=== PATIENT | female | born 1980 | race Asian ===

== ENCOUNTER 2017-11-12 03:49 | Inpatient (IN) | payer BC, OTHER ==
[~2017-11-12] VITALS: Ht 157.5 cm; Wt 56.2 kg
[~2017-11-12 03:49] MED LIST: FERR-43 PO
[2017-11-12] MEDS ORDERED: FOLI-43 PO (04:50)
[2017-11-12] MEDS ORDERED: PNV1TABL76 MT (04:50)
[2017-11-12] MEDS ORDERED: LACTATED RINGERS 1,000 ML IV SCH (04:54)
[2017-11-12] MEDS ORDERED: TERBUTALINE SULFATE 1MG/ML VIAL SUBCUT NR (05:00)
[2017-11-12] MEDS ORDERED: BETAMETHASONE ACET/BETAMET 30 MG/5 ML VIAL IM SCH (05:00)
[2017-11-12] MEDS ORDERED: AMPICILLIN 2,000 MG in SODIUM CHLORIDE 0.9% 100 ML IV SCH (05:15)
[2017-11-12] MEDS ORDERED: AZITHROMYCIN 500 MG in DEXT 5% WATER 250 ML IV SCH (06:00)
[2017-11-12 06:28] LABS: BASOPHILS % 0.2 % (0.0-2.0); EOSINOPHILS % 0.8 % (0.0-5.0); HEMATOCRIT. 36.3 % (36.0-48.0); MEAN CORPUSCULAR HEMOGLOBIN 30.2 pg (28.0-32.0); MEAN CORPUSCULAR VOLUME 91.7 fL (81.0-99.0); MEAN PLATELET VOLUME 8.8 fl (7.4-10.4); MONOCYTES % 6.7 % (2.0-8.0); NEUTROPHILS % 84.3 % (40.0-76.0); PLATELET 189 x1000/uL (130-400); RED BLOOD CELL COUNT 3.96 mill/uL (4.2-5.4); RED CELL DISTRIBUTION WIDTH 14.1 % (11.6-14.6)
[2017-11-12 06:31] LABS: CLARITY URINE CLEAR (CLEAR); COLOR URINE YELLOW (YELLOW); KETONES URINE NEGATIVE (NEGATIVE); LEUKOCYTE ESTERASE URINE 2+ (NEGATIVE); NITRITE URINE NEGATIVE (NEGATIVE); OCCULT BLOOD URINE NEGATIVE (NEGATIVE); PH URINE 6.5 (4.5-8.0); PROTEIN URINE NEGATIVE (NEGATIVE); SPECIFIC GRAVITY URINE 1.008 (1.005-1.030); UROBILINOGEN URINE 0.2 E.U./dL (0.2-1.0)
[2017-11-12 06:33] LABS: INR 0.9; PARTIAL THROMBOPLASTIN TIME 25.5 sec (23.4-31.0); PROTHROMBIN TIME 9.8 sec (9.4-11.6)
[2017-11-12 07:01] LABS: *AMPHETAMINES SCREEN URINE NEGATIVE (NEGATIVE); *BARBITURATES SCREEN URINE NEGATIVE (NEGATIVE); *BENZODIAZEPINES SCREEN URINE NEGATIVE (NEGATIVE); *COCAINE SCREEN URINE NEGATIVE (NEGATIVE); CANNABINOID URINE SCREEN NEGATIVE (NEGATIVE); METHADONE URINE SCREEN NEGATIVE (NEGATIVE); OPIATES URINE SCREEN NEGATIVE (NEGATIVE); PHENCYCLIDINE URINE SCREEN NEGATIVE (NEGATIVE)
[2017-11-12] MEDS ORDERED: DEXT 5%/LR + PITOCIN 20UNITS/L 1,000 ML IV SCH (07:16)
[2017-11-12] MEDS ORDERED: MAGNESIUM 20 G PREMIX (L & D) 500 ML IV SCH (07:20)
[2017-11-12] MEDS ORDERED: METHYLERGONOVINE MALEATE 0.2 MG/ML IM PRN (07:30)
[2017-11-12] MEDS ORDERED: CARBOPROST TROMETHAMINE 250 MCG/ML AMPUL IM PRN (07:30)
[2017-11-12 10:54] LABS: HEPATITIS B SURFACE ANTIGEN NEGATIVE; RUBELLA IGG 59.2 IU/mL (4.99-10)
[2017-11-12] MEDS ORDERED: AMPICILLIN 1,000 MG in SODIUM CHLORIDE 0.9% 50 ML IV SCH (12:00)
[2017-11-12] MEDS ORDERED: MORPHINE SULFATE/PF 1MG/ML 10ML AMP ONE (12:39)
[2017-11-12] MEDS ORDERED: FENTANYL CITRATE/PF 50MCG/ML 2ML VIAL ONE (12:39)
[2017-11-12] MEDS ORDERED: GLYCOPYRROLATE 0.2 MG/ML 2ML VIAL ONE (13:11)
[2017-11-12] MEDS ORDERED: CEFAZOLIN SODIUM 1000MG/VIAL ONE (13:12)
[2017-11-12] MEDS ORDERED: OXYTOCIN 10 UNITS/ML 1ML ONE (13:22)
[2017-11-12] MEDS ORDERED: NALOXONE HCL 0.4 MG/ML 1ML VIAL IV PRN (14:15)
[2017-11-12] MEDS ORDERED: HYDROCODONE/ACETAMINOPHEN 5/325MG TABLET PO PRN (14:15)
[2017-11-12] MEDS ORDERED: RHO(D) IMMUNE GLOBULIN 300 MCG/SYR IM PRN (14:15)
[2017-11-12] MEDS ORDERED: DIPHENHYDRAMINE 50MG/ML VIAL IV PRN (14:15)
[2017-11-12] MEDS ORDERED: ONDANSETRON HCL 4MG/2ML VIAL IV PRN (14:15)
[2017-11-12] MEDS ORDERED: LANOLIN OINT 0.25 GM TUBE TOP PRN (14:15)
[2017-11-12] MEDS: KETOROLAC 30MG/ML VIAL IV SCH ×2 (16:23→22:30)
[2017-11-12 17:00] VITALS: BP 98/49
[2017-11-12 17:30] VITALS: BP 109/65
[2017-11-12] MEDS: DEXT 5%/LR + PITOCIN 20UNITS/L 1,000 ML IV SCH (20:55)
[2017-11-12 22:00] VITALS: BP 98/49
[2017-11-13 00:30] VITALS: BP 95/49
[2017-11-13] MEDS: KETOROLAC 30MG/ML VIAL IV SCH ×2 (04:38→08:30)
[2017-11-13] MEDS: DEXT 5%/LR + PITOCIN 20UNITS/L 1,000 ML IV SCH (05:54)
[2017-11-13 06:00] VITALS: BP 97/55
[2017-11-13 07:54] LABS: HEMATOCRIT. 26.6 % (36.0-48.0); MEAN CORPUSCULAR HEMOGLOBIN 30.1 pg (28.0-32.0); MEAN CORPUSCULAR VOLUME 89.4 fL (81.0-99.0); MEAN PLATELET VOLUME 8.8 fl (7.4-10.4); PLATELET 193 x1000/uL (130-400); RED BLOOD CELL COUNT 2.97 mill/uL (4.2-5.4)
[2017-11-13 08:00] VITALS: BP 113/59
[2017-11-13] MEDS ORDERED: TETANUS, DIPHTHERIA, PERTUSSIS VAC/PF 0.5ML (>7YR OLD) IM ONE (08:00)
[2017-11-13 10:20] LABS: PLATELET ESTIMATE NORMAL
[2017-11-13] MEDS: HYDROCODONE/ACETAMINOPHEN 5/325MG TABLET PO PRN ×2 (11:59→18:25)
[2017-11-13 12:00] VITALS: BP 116/64
[2017-11-13] MEDS: IBUPROFEN 400MG TABLET PO PRN ×2 (12:00→18:26)
[2017-11-13] MEDS: PRENATAL VIT/FE FUMARATE/FA TABLET PO SCH (13:55)
[2017-11-13 16:45] VITALS: BP 115/65
[2017-11-13 22:00] VITALS: BP 107/58
[2017-11-14 04:00] VITALS: BP 99/54
[2017-11-14] MEDS: PRENATAL VIT/FE FUMARATE/FA TABLET PO SCH (07:29)
[2017-11-14 07:42] VITALS: BP 105/54
[2017-11-14] MEDS: HYDROCODONE/ACETAMINOPHEN 5/325MG TABLET PO PRN (14:26)
[2017-11-14 16:00] VITALS: BP 100/60
[2017-11-14 20:00] VITALS: BP 117/62
[2017-11-14] MEDS ORDERED: DOCUSATE SODIUM 100MG CAPSULE PO SCH (21:00)
[2017-11-14] MEDS: IBUPROFEN 400MG TABLET PO PRN (21:26)
[2017-11-15 00:24] VITALS: BP 118/76
[2017-11-15] MEDS: HYDROCODONE/ACETAMINOPHEN 5/325MG TABLET PO PRN (04:17)
[2017-11-15] MEDS: PRENATAL VIT/FE FUMARATE/FA TABLET PO SCH (07:56)
[2017-11-15 08:00] VITALS: BP 129/75
[2017-11-15] MEDS ORDERED: TETANUS, DIPHTHERIA, PERTUSSIS VAC/PF 0.5ML (>7YR OLD) IM ONE (08:00)
[2017-11-15] MEDS ORDERED: INFLUENZA VIRUS VACCINE 0.5ML SYR IM ONE (10:00)
== END 2017-11-15 12:20 | disposition home or self-care (01) | DRG 765 ==
LOC: L&D 03:49 → OBSVTOIN 03:49 → L&D 12:04 → 7EST PP/OB 16:47
PROVIDERS: ADMIT Specialist; ATTEND Specialist
PROC: 10D00Z1 Extraction of Products of Conception, Low, Open Approach (ICD-10-PCS; principal; 2017-11-13)
DX: O30.003 Twin pregnancy, unspecified number of placenta and unspecified number of amniotic sacs, third trimester (principal); O60.14X1 Preterm labor third trimester with preterm delivery third trimester, fetus 1; O60.14X2 Preterm labor third trimester with preterm delivery third trimester, fetus 2; D62 Acute posthemorrhagic anemia; Z37.2 Twins, both liveborn; O32.1XX2 Maternal care for breech presentation, fetus 2; O90.81 Anemia of the puerperium; Z3A.32 32 weeks gestation of pregnancy; Z79.899 Other long term (current) drug therapy; O09.523 Supervision of elderly multigravida, third trimester
CPT/HCPCS: 36415; 76810; 80305; 81003; 85025; 85610; 85730; 86592; 86703; 86762; 86850; 86900; 87340; 88307; 90686; 90715; G0378; J0290; J0456; J0690; J0702; J1200; J1885; J2274; J2405; J2590; J3010; J3105; J3475; J3490; J7050; J7060; J7120; A4315

== ENCOUNTER 2018-07-30 09:38 | Observation (INO) | payer BC, OTHER ==
[~2018-07-30] VITALS: Ht 157.5 cm; Wt 52.6 kg
[~2018-07-30 09:38] MED LIST changes: +FOLI-43 PO; +PNV1TABL76 MT
[2018-07-30] MEDS ORDERED: MVI, ADULT NO.1 10 ML in DEXT 5%/LACTATED RINGERS 1,000 ML IV SCH ×2 (12:00)
== END 2018-07-30 13:40 | disposition home or self-care (01) ==
LOC: ER 09:38 → L&D 10:00
PROVIDERS: ADMIT Specialist; ATTEND Specialist
DX: O26.892 Other specified pregnancy related conditions, second trimester (principal); R10.30 Lower abdominal pain, unspecified; M79.604 Pain in right leg; M79.605 Pain in left leg; Z3A.27 27 weeks gestation of pregnancy; O09.522 Supervision of elderly multigravida, second trimester
CPT/HCPCS: 96365; 99281; G0378; J3490; J7121

== ENCOUNTER 2018-10-26 17:46 | Inpatient (IN) | payer OTHER ==
[~2018-10-26] VITALS: Ht 157.5 cm; Wt 59.0 kg
[2018-10-26] MEDS ORDERED: DEXT 5%/LR + PITOCIN 20UNITS/L 1,000 ML IV SCH (18:21)
[2018-10-26] MEDS ORDERED: METHYLERGONOVINE MALEATE 0.2 MG/ML IM PRN (18:30)
[2018-10-26] MEDS ORDERED: CARBOPROST TROMETHAMINE 250 MCG/ML AMPUL IM PRN (18:30)
[2018-10-26] MEDS ORDERED: MISOPROSTOL 100MCG TABLET VG SCH (18:30)
[2018-10-26] MEDS ORDERED: NALOXONE HCL 0.4 MG/ML 1ML VIAL IM PRN (18:30)
[2018-10-26] MEDS: LACTATED RINGERS 1,000 ML IV SCH ×2 (18:35→18:58)
[2018-10-26 19:14] LABS: BASOPHILS % 0.2 % (0.0-2.0); EOSINOPHILS % 1.2 % (0.0-5.0); HEMATOCRIT. 35.6 % (36.0-48.0); LYMPHOCYTES % 12.1 % (20.0-50.0); MEAN CORPUSCULAR HEMOGLOBIN 29.4 pg (28.0-32.0); MEAN CORPUSCULAR VOLUME 87.2 fL (81.0-99.0); MEAN PLATELET VOLUME 9.4 fl (7.4-10.4); NEUTROPHILS % 79.5 % (40.0-76.0); PLATELET 198 x1000/uL (130-400); RED BLOOD CELL COUNT 4.08 mill/uL (4.2-5.4)
[2018-10-26 19:15] LABS: CLARITY URINE CLEAR (CLEAR); COLOR URINE YELLOW (YELLOW); KETONES URINE NEGATIVE (NEGATIVE); LEUKOCYTE ESTERASE URINE NEGATIVE (NEGATIVE); NITRITE URINE NEGATIVE (NEGATIVE); OCCULT BLOOD URINE 1+ (NEGATIVE); PROTEIN URINE NEGATIVE (NEGATIVE); SPECIFIC GRAVITY URINE 1.007 (1.005-1.030); UROBILINOGEN URINE 0.2 E.U./dL (0.2-1.0)
[2018-10-26 19:23] LABS: INR 0.9; PARTIAL THROMBOPLASTIN TIME 25.9 sec (23.4-31.0); PROTHROMBIN TIME 9.4 sec (9.1-11.1)
[2018-10-26 19:25] LABS: *AMPHETAMINES SCREEN URINE NEGATIVE (NEGATIVE); *BARBITURATES SCREEN URINE NEGATIVE (NEGATIVE); *BENZODIAZEPINES SCREEN URINE NEGATIVE (NEGATIVE); *COCAINE SCREEN URINE NEGATIVE (NEGATIVE); METHADONE URINE SCREEN NEGATIVE (NEGATIVE); OPIATES URINE SCREEN NEGATIVE (NEGATIVE)
[2018-10-26 19:26] LABS: CANNABINOID URINE SCREEN NEGATIVE (NEGATIVE); PHENCYCLIDINE URINE SCREEN NEGATIVE (NEGATIVE)
[2018-10-26 19:56] LABS: HEPATITIS B SURFACE ANTIGEN NEGATIVE
[2018-10-26] MEDS ORDERED: MORPHINE SULFATE/PF 1MG/ML 10ML AMP ONE (20:25)
[2018-10-26] MEDS ORDERED: FENTANYL CITRATE/PF 50MCG/ML 5ML VIAL ONE (20:25)
[2018-10-26] MEDS ORDERED: FENTANYL CITRATE/PF 50MCG/ML 2ML VIAL ONE (20:26)
[2018-10-26] MEDS ORDERED: CITRIC ACID/SODIUM CITRATE SOLN 30ML UDC PO NR (20:30)
[2018-10-26] MEDS ORDERED: SODIUM CHLORIDE 0.9% 10ML VIAL ONE (20:32)
[2018-10-26] MEDS ORDERED: EPHEDRINE SULFATE 50MG/ML VIAL ONE (22:01)
[2018-10-26] MEDS ORDERED: OXYTOCIN 10 UNITS/ML 1ML ONE (22:02)
[2018-10-26] MEDS ORDERED: CEFAZOLIN SODIUM 1000MG/VIAL ONE (22:02)
[2018-10-26] MEDS ORDERED: DIPHENHYDRAMINE 50MG/ML VIAL ONE (22:03)
[2018-10-26] MEDS ORDERED: PHENYLEPHRINE HCL 10 MG/ML 1ML (IV VIAL) IV ONE (22:08)
[2018-10-26] MEDS ORDERED: ONDANSETRON HCL 4MG/2ML INJ ONE (22:09)
[2018-10-26] MEDS ORDERED: BUTORPHANOL TARTRATE 2 MG/ML VIAL IV PRN (22:15)
[2018-10-26] MEDS ORDERED: NALOXONE HCL 0.4 MG/ML 1ML VIAL IV PRN (22:15)
[2018-10-26] MEDS ORDERED: DIPHENHYDRAMINE 50MG/ML VIAL IM PRN (22:15)
[2018-10-26] MEDS ORDERED: ONDANSETRON HCL 4MG/2ML INJ IM PRN (22:15)
[2018-10-26] MEDS ORDERED: LANOLIN OINT 0.25 GM TUBE TOP PRN (22:30)
[2018-10-26] MEDS ORDERED: HYDROCODONE/ACETAMINOPHEN 5/325MG TABLET PO PRN ×2 (22:30)
[2018-10-26] MEDS ORDERED: IBUPROFEN 400MG TABLET PO PRN (22:30)
[2018-10-26] MEDS ORDERED: ONDANSETRON HCL 4MG/2ML INJ IV PRN (22:30)
[2018-10-26] MEDS ORDERED: MEPERIDINE HCL/PF 25MG/ML CPJ IV NR (22:45)
[2018-10-27] MEDS ORDERED: NALOXONE HCL 0.4 MG/ML 1ML VIAL IV PRN
[2018-10-27] MEDS ORDERED: DIPHENHYDRAMINE 50MG/ML VIAL IV PRN
[2018-10-27] MEDS ORDERED: FENTANYL CITRATE/PF 50MCG/ML 2ML VIAL IV PRN
[2018-10-27] MEDS ORDERED: ACETAMINOPHEN WITH CODEINE 300/60MG TABLET PO PRN (00:15)
[2018-10-27] MEDS: KETOROLAC 30MG/ML VIAL IV SCH ×3 (00:52→13:45)
[2018-10-27] MEDS: DEXT 5%/LR + PITOCIN 20UNITS/L 1,000 ML IV SCH ×2 (01:10→09:02)
[2018-10-27 01:35] VITALS: BP 121/72
[2018-10-27 04:00] VITALS: BP 119/70
[2018-10-27 06:00] VITALS: BP 117/68
[2018-10-27 06:14] LABS: HEMATOCRIT. 28.2 % (36.0-48.0); HEMOGLOBIN. 9.4 g/dL (12.0-16.0); MEAN CORPUSCULAR HEMOGLOBIN 29.4 pg (28.0-32.0); MEAN PLATELET VOLUME 9.4 fl (7.4-10.4); PLATELET 167 x1000/uL (130-400); RED BLOOD CELL COUNT 3.21 mill/uL (4.2-5.4)
[2018-10-27 07:47] VITALS: BP 97/50
[2018-10-27] MEDS: PRENATAL VIT/FE FUMARATE/FA TABLET PO SCH (09:01)
[2018-10-27 14:31] LABS: PLATELET ESTIMATE NORMAL
[2018-10-27] MEDS: IBUPROFEN 800MG TABLET PO PRN (15:57)
[2018-10-27 16:04] VITALS: BP 98/50
[2018-10-27 20:00] VITALS: BP 98/49
[2018-10-28] VITALS: BP 92/47
[2018-10-28 07:43] VITALS: BP 110/59
[2018-10-28] MEDS: IBUPROFEN 800MG TABLET PO PRN ×2 (07:59→18:15)
[2018-10-28] MEDS: PRENATAL VIT/FE FUMARATE/FA TABLET PO SCH (07:59)
[2018-10-28 16:03] VITALS: BP 101/63
[2018-10-28 20:00] VITALS: BP 123/71
[2018-10-29] VITALS: BP 112/60
[2018-10-29 04:00] VITALS: BP 99/52
[2018-10-29] MEDS: IBUPROFEN 800MG TABLET PO PRN (04:21)
[2018-10-29 08:00] VITALS: BP 106/65
== END 2018-10-29 11:00 | disposition home or self-care (01) | DRG 540 ==
LOC: OBSVTOIN 17:46 → 8 EST LDRP 17:46 → 8EST 10-27 01:47
PROVIDERS: ADMIT Obstetrics & Gynecology; ATTEND Obstetrics & Gynecology
PROC: 10D00Z1 Extraction of Products of Conception, Low, Open Approach (ICD-10-PCS; principal; 2018-10-26)
PROC: 0UB70ZZ Excision of Bilateral Fallopian Tubes, Open Approach (ICD-10-PCS; 2018-10-26)
DX: O34.211 Maternal care for low transverse scar from previous cesarean delivery (principal); D62 Acute posthemorrhagic anemia; O69.81X0 Labor and delivery complicated by cord around neck, without compression, not applicable or unspecified; Z37.0 Single live birth; Z3A.38 38 weeks gestation of pregnancy; Z30.2 Encounter for sterilization; O90.81 Anemia of the puerperium
CPT/HCPCS: 36415; 80305; 86592; 86703; 86762; 86850; 86900; 87340; 88302; 88307; 99281; G0378; J0690; J1200; J1885; J2175; J2274; J2370; J2405; J2590; J3010; J3490; A4315